=== PATIENT | male | born 1970 | race Two or more races ===

== ENCOUNTER 2024-07-12 07:40 | Day surgery (SDC) | payer MEDICAID ==
[2024-07-10 10:57] LABS: Urine Bacteria None Seen /hpf (None Seen)
[2024-07-10 11:11] LABS: Basophils # (auto) 0 10 ^3/uL (0-0.2); Basophils % (auto) 0.3 % (0.0-2.0); Eosinophils # (auto) 0.2 10 ^3/uL (0-0.8); Eosinophils % (auto) 4.1 % (0.0-7.0); Hematocrit 43.5 % (41.0-53.0); Hemoglobin 15.4 g/dL (13.5-17.5); Lymphocytes # (auto) 1.4 10 ^3/uL (0.4-5.4); Lymphocytes % (auto) 25.8 % (10.0-50.0); Mean Corpuscular Hemoglobin 32.1 pg (28.0-32.0); Mean Corpuscular Hgb Conc. 35.3 g/dL (32.0-36.0); Monocytes # (auto) 0.8 10 ^3/uL (0-1.3); Monocytes % (auto) 14.5 % (0.0-12.0); Neutrophils # (auto) 2.9 10 ^3/uL (1.6-8.6); Neutrophils % (auto) 55.3 % (37.0-80.0); Nucleated Red Blood Cells % 0.3 %; Platelet Count (auto) 204 10^3/uL (140-450); Red Blood Cells 4.78 10^6/uL (4.5-5.90); Red Cell Distribution Width 12.8 % (11.8-14.3); White Blood Cell 5.3 10^3/uL (4.4-10.8)
[2024-07-10 11:20] LABS: INR 1.05 (0.9-1.15); Partial Thromboplastin Time 27.3 SEC (24.5-34.5); Prothrombin Time 11.1 sec (9.3-11.8)
[2024-07-10 11:23] LABS: Urine Blood Negative /uL (Negative); Urine Clarity Clear (Clear); Urine Color Yellow (Yellow); Urine Protein, UAD Negative (Negative); Urine Specific Gravity 1.018 (1.001-1.035); Urine Urobilinogen 3 mg/dL (Negative); Urine WBC <1 /hpf (0 - 3); Urine pH 6.5 (5.0-9.0)
[2024-07-10 11:47] LABS: Alanine Aminotransferase 35 U/L (7-40); Albumin 4.2 g/dL (3.2-4.8); Alkaline Phosphatase 75 U/L (46-116); Anion Gap 6 (5-15); Aspartate Aminotransferase 26 U/L (13-40); BUN/Creatinine Ratio 16.9 (10.0-20.0); Bilirubin, Total 0.7 mg/dL (0.2-1.0); Blood Urea Nitrogen 12 mg/dL (9-23); Calcium 9.6 mg/dL (8.7-10.4); Carbon Dioxide 27 mmol/L (20-31); Chloride 107 mmol/L (98-107); Glucose 92 mg/dL (74-106); Sodium 140 mmol/L (136-145); Total Protein 7.1 g/dL (5.7-8.2)
[~2024-07-12] VITALS: Ht 175.3 cm; Wt 104.3 kg
[~2024-07-12 07:40] MED LIST: BUPR-413 PO; BUSP15TA60 PO; CARV25TA55 PO; GABA-339 PO; HYDR-4798 PO; LISI40TA16 PO; SPIR25TA8 PO; TERA1CAP52 PO; TRAZ-181 PO
[2024-07-12] MEDS ORDERED: KETAMINE 50mg/ML 1ml syringe IV ONE (07:41)
[2024-07-12] MEDS ORDERED: PHENYLEPHRINE HCL 10 MG/ML VL IV ONE (07:41)
[2024-07-12] MEDS ORDERED: GABAPENTIN 400 MG CAP ONE (09:24)
[2024-07-12] MEDS ORDERED: ACETAMINOPHEN IV 100 ML IV ONE (09:24)
[2024-07-12] MEDS ORDERED: CELECOXIB 100 MG CAP ONE (09:24)
[2024-07-12] MEDS ORDERED: KETOROLAC TROMETH 30 MG/ML 1ML VIAL ONE (09:30)
[2024-07-12] MEDS ORDERED: CELECOXIB 100 MG CAP PO ONE (09:30)
[2024-07-12] MEDS ORDERED: LIDOCAINE 2% (LOCAL ANESTH.) PF 5ml SDV ONE (09:30)
[2024-07-12] MEDS ORDERED: DexAMETHasone SOD PHOS 10MG/1ML VIAL INJ ONE (09:30)
[2024-07-12] MEDS ORDERED: ACETAMINOPHEN IV 1000 MG/100ML (10MG/ML) IV ONE (09:30)
[2024-07-12] MEDS ORDERED: ONDANSETRON HCL 4 MG/2 ML VIAL ONE (09:30)
[2024-07-12] MEDS ORDERED: GABAPENTIN 400 MG CAP PO ONE (09:30)
[2024-07-12] MEDS ORDERED: LIDOCAINE HCL 2% TOP JELLY 5ML TOP ONE (09:30)
[2024-07-12] MEDS ORDERED: PROPOFOL 10 MG/ML 20 ML IV ONE (09:31)
[2024-07-12] MEDS ORDERED: GLYCOPYRROLATE 0.2 MG/ML 1ML VIAL ONE (09:31)
[2024-07-12] MEDS ORDERED: ceFAZolin 2 GM/D5W100ml 100 ML IV ONE (09:32)
[2024-07-12] MEDS: BUPIVACAINE 0.5% P/F INJ 10 ML VIAL ONE (09:50)
[2024-07-12] MEDS ORDERED: ePHEDrine SULFATE 50 MG/ML AMP ONE (09:56)
[2024-07-12 10:29] VITALS: PULSE 95; RESP 17; O2SAT 96
[2024-07-12 10:30] VITALS: TEMP 97.4
--- NOTE | 2024-07-12 10:30 | DVHOP2 ---
Operative Report - 2 Report Details Date: 07/12/24 Preop Diagnosis: 1. Right foot neuroma 2. Right foot hallux arthritis 3. Right foot pain Postop Diagnosis: Right foot neuroma Right foot hallux arthritis Surgeon: Daniel Napoles MD Anesthesiologist: See anesthesia Anesthesia: General Consent: The patient was informed of the risks and benefits of the procedure. These include but are not limited to complications of anesthesia, postoperative infection, incomplete relief of symptoms, recurrence of symptoms, damage to blood vessels, nerves and tendons, deep venous thrombosis, pulmonary embolism and possible need for repeat surgery in the future. Complications: None Estimated Blood Loss: Minimal Fluids: See anesthesia Findings: Consistent with diagnosis Indications for Surgery: Worsening right foot pain Name of Procedure Performed 1. Right foot neuroma excision 2. Right foot nerve decompression 3. Right foot hallux cheilectomy Procedure Details Procedure Details: PRE-PROCEDURE INFORMATION: In the pre-op holding area, the extremity to be ope rated on was clearly marked and the patient verified correct laterality of the marking. The patient was transferred to the OR table and placed in a supine position. A timeout was performed in which identification of the correct patient, procedure, location, and materials was done. The right foot and leg were prepped and draped in normal sterile fashion. The foot and leg were exsanguinated and the thigh tourniquet was inflated to 250 mmHg. DESCRIPTION OF PROCEDURE: Attention was directed to the right foot where linear incision was made at the dorsal 1st interspace. Care was taken throughout the dissection to avoid damage to the neurovascular and tendinous structures. Hemostasis was achieved via electrocautery. The incision was deepened through blunt dissection to the level of the deep transverse intermetatarsal ligament. Once the ligament was visualized it was transected using dissecting scissors, effectively decompressing the underlying plantar nerve. This allowed visualization of the plantar nerve, which revealed that there was a neuroma of the plantar nerve with hourglass and severe fibrosis of the perineum noted. The nerve was dissected proximally and was transected. The neuroma was removed and sent to pathology. Attention was directed to the right 1st metatarsophalangeal joint where a stab incision was made at the head of the 1st metatarsal. Care was taken throughout dissection to avoid damage to neurovascular tendinous structures. The incision was deepened to the level of the capsule. Using an MIS bur, the bur was then inserted, and the dorsal spurring of the 1st metatarsal was removed. It was no alycia after performing the MIS cheilectomy that there significant increased range of motion of the hallux. All surgical wounds were irrigated copiously with saline and closed in layers with the aforementioned suture material. A dry sterile dressing was placed on the surgical extremity. The patient was placed in a postop shoe. POSTOPERATIVE INFORMATION: The patient tolerated the above noted procedure and anesthesia well and was transferred to the PACU with vital signs stable, and vascular status intact with capillary refill intact to all digits. Postoperative instructions reviewed in detail with the patient with written instructions provided. Patient will return to clinic in approximately 10-14 days for first postoperative visit. Patient has the number of the clinic and was instructed to call prior to that time should any problems, questions, or concerns arise. Specimen: Right foot neuroma Condition Good Disposition Home DANIEL NAPOLES DPM Jul 12, 2024 10:30
[2024-07-12] MEDS ORDERED: fentaNYL CITRATE 100 MCG/2 ML VL IV PRN (10:45)
[2024-07-12] MEDS ORDERED: ePHEDrine SULFATE 50 MG/ML AMP IV PRN (10:45)
[2024-07-12] MEDS ORDERED: NALOXONE HCL 0.4 MG/ML VIAL IV PRN (10:45)
[2024-07-12] MEDS ORDERED: oxyCODONE HCL 5MG TAB PO PRN (10:45)
[2024-07-12] MEDS ORDERED: ONDANSETRON HCL 4 MG/2 ML VIAL IV PRN (10:45)
[2024-07-12] MEDS ORDERED: HYDROmorphone HCL 2 MG/ML VL/or syr IV PRN (10:45)
[2024-07-12] MEDS ORDERED: hydrALAZINE HCL 20 MG/ML VL IV PRN (10:45)
[2024-07-12] MEDS ORDERED: FLUMAZENIL 0.1 MG/ML INJ 10ML MDV IV PRN (10:45)
[2024-07-12 11:05] VITALS: BP 123/91; PULSE 85; RESP 12; O2SAT 93
== END 2024-07-12 11:15 | disposition home or self-care (01) ==
LOC: SUR 07:40
PROVIDERS: ATTEND Podiatrist
DX: M19.071 Primary osteoarthritis, right ankle and foot (principal); M20.5X1 Other deformities of toe(s) (acquired), right foot; D36.13 Benign neoplasm of peripheral nerves and autonomic nervous system of lower limb, including hip; I10 Essential (primary) hypertension; G89.29 Other chronic pain; G47.33 Obstructive sleep apnea (adult) (pediatric); E66.01 Morbid (severe) obesity due to excess calories; Z68.39 Body mass index [BMI] 39.0-39.9, adult; Z88.8 Allergy status to other drugs, medicaments and biological substances; Z91.048 Other nonmedicinal substance allergy status; Z98.890 Other specified postprocedural states; Z79.899 Other long term (current) drug therapy; Z91.09 Other allergy status, other than to drugs and biological substances; Z68.34 Body mass index [BMI] 34.0-34.9, adult; M79.671 Pain in right foot
CPT/HCPCS: 28080; 28289; 36415; 80053; 81001; 85025; 85610; 85730; 88305; J1100; J1885; J2003; J2371; J2405; J2704; J3490; J0131

== ENCOUNTER → 2025-03-22 | Day surgery (SDC) | payer MEDICAID ==
[2025-03-19 11:50] LABS: Hematocrit 45.6 % (41.0-53.0); Hemoglobin 15.9 g/dL (13.5-17.5); Mean Corpuscular Hemoglobin 32.0 pg (28.0-32.0); Mean Corpuscular Volume 91.6 fL (80.0-100.0); Nucleated Red Blood Cells % 0.1 %
[2025-03-19 11:51] LABS: Urine Protein, UAD Negative (Negative)
[2025-03-19 12:00] LABS: INR 1.02 (0.9-1.15); Partial Thromboplastin Time 26.5 SEC (24.5-34.5); Prothrombin Time 10.8 sec (9.3-11.8)
[2025-03-19 12:37] LABS: Alanine Aminotransferase 31 U/L (7-40); Alkaline Phosphatase 66 U/L (46-116); Anion Gap 8 (5-15); BUN/Creatinine Ratio 20.3 (10.0-20.0); Blood Urea Nitrogen 16 mg/dL (9-23); Calcium 9.8 mg/dL (8.7-10.4); Carbon Dioxide 27 mmol/L (20-31); Chloride 104 mmol/L (98-107); Glucose 98 mg/dL (74-106); Potassium 3.9 mmol/L (3.5-5.1); Sodium 139 mmol/L (136-145); Total Protein 7.6 g/dL (5.7-8.2)
[2025-03-19 12:38] LABS: Albumin 4.9 g/dL (3.2-4.8); Bilirubin, Total 0.8 mg/dL (0.2-1.0)
[~2025-03-22] VITALS: Ht 175.3 cm; Wt 104.3 kg
[~2025-03-22] MED LIST changes: +ATOR-507 PO; +GLYCOPYRROLATE 0.2 MG/ML 1ML VIAL ONE; +LIDO5DIS21 TOP; +LIDOCAINE 2% (LOCAL ANESTH.) PF 5ml SDV ONE; +MIDAZOLAM HCL 2MG/2ML 2ml VIAL (1mg/ml) ONE; +ONDANSETRON HCL 4 MG/2 ML VIAL ONE; +PROPOFOL 10 MG/ML 20 ML IV ONE; +fentaNYL CITRATE 100 MCG/2 ML VL ONE
[2025-03-22 07:49] VITALS: TEMP 97.6
--- NOTE | 2025-03-22 08:42 | DVHHP2 ---
GI H&P Pre-Op Assessment Date: 03/22/25 Chief complaint: colon cancer screening, abdominal distension HPI: per clinic note Past medical history: per clinic note Past surgical history: per clinic note Family history: per clinic note Physical exam: General: NAD, AAOX3 HEENT: PERRL, no scleral icterus, normal hearing, gums without lesions or bleeding, oropharynx clear without erythema or exudate. Neck: Supple without enlargement of the thyroid, or lymphadenopathy. Chest: Normal size and shape, no tenderness, lung han clear to auscultation and percussion, nonlabored breathing. Heart: RRR, no murmur Abdomen: non-distended, no tenderness to palpation, +BS, no hepatosplenomegaly Extremities: no edema Neurological: CN II-XII intact, sensation intact in all extremities, 5+ strength in all extremities Skin: No rashes, No jaundice Assessment: - colon cancer screening - abdominal distension Plan: - EGD - Colonoscopy - Risks (bleeding, infection, perforation, reaction to sedation medications and cardiopulmonary arrest) and benefit of the procedure were explained to patient. Patient agrees to undergo the procedure. QUAN NICHOLE MD Mar 22, 2025 08:42
[2025-03-22 09:16] VITALS: PULSE 91; RESP 13; O2SAT 94
--- NOTE | 2025-03-22 09:21 | DVHOP2 ---
Operative Report DATE OF OPERATION: 03/22/25 PROCEDURE: Upper Endoscopy. PREOPERATIVE INDICATION: The patient is a 55 -year-old male undergoing endoscopy for upper abdominal distension. POSTOPERATIVE DIAGNOSES: 1. Duodenitis in the bulb. 2. Mild gastritis PROCEDURE PERFORMED BY: Elian Anderson SCOPE: Olympus videoendoscope. ASA CLASS: 3 PREOPERATIVE MEDICATIONS: MAC with Dr Hays PROCEDURE IN DETAIL: After obtaining an informed consent, the patient was place d on left lateral decubitus position. The patient was then sedated with the above medications. A bite block was placed between his teeth. The endoscope was then passed through the oropharynx, into the esophagus, and through the stomach and pylorus up to the second and third part of the duodenum. There was mild duodenitis in the bulb. Duodenal biopsies were obtained. There was mild gastritis. Gastric biopsies were obtained. The GEJ was normal in appearance at 39 cm. The esophagus was normal in appearance. The endoscope was then withdrawn. The patient tolerated the procedure well without difficulty. COMPLICATIONS : None SPECIMENS: Duodenal biopsies, Gastric biopsies DISPOSITION: D/C to home PLAN: 1. Await for biopsy result ELIAN ANDERSON MD Mar 22, 2025 09:21
--- NOTE | 2025-03-22 09:24 | DVHOP2 ---
Operative Report DATE OF OPERATION: 03/22/25 PROCEDURE: Colonoscopy. PREOPERATIVE INDICATION: The patient is a 55 -year-old male undergoing colonoscopy for blood in the stool. POSTOPERATIVE DIAGNOSES: 1. 3 mm descending colon polyp was removed with cold biopsy forceps. 2. 2 mm sigmoid colon polyp was removed with cold biopsy forceps. 3. Mild diffuse diverticulosis PROCEDURE PERFORMED BY: Elian Anderson M.D. SCOPE: Olympus videocolonoscope. ASA CLASS: 3 PREOPERATIVE MEDICATIONS: MAC with Dr Hays PROCEDURE IN DETAIL: After obtaining an informed consent, the patient was placed on left lateral decubitus position. He was then sedated with the above medications. A rectal examination was performed that was normal. The colonoscope was then passed through the anus into the rectosigmoid and through the descending, transverse, and ascending colon up to the cecum with visualization of the appendiceal orifice, base of the cecum and the ileocecal valve. A 3 mm descending colon polyp was removed with cold biopsy forceps. A 2 mm sigmoid colon polyp was removed with cold biopsy forceps. There was mild diffuse diverticulosis. The colonoscope was then withdrawn. The patient tolerated the procedure well without difficulty. WITHDRAWAL TIME: 6 minutes QUALITY OF THE PREP: Haskins Bowel Prep score: 6 COMPLICATIONS : None SPECIMENS: Colon polyps DISPOSITION: D/C to home PLAN: 1. Repeat colonoscopy base on biopsy result ELIAN ANDERSON MD Mar 22, 2025 09:24
--- NOTE | 2025-03-22 09:24 | DVHDS2 ---
Physician Discharge Progress N Final Diagnosis: Duodenitis, gastritis Colon polyps, diverticulosis Operations or Procedures: Operations or Procedures EGD with cold biopsy Colonoscopy with cold biopsy polypectomy Condition on Discharge: Good Disposition: Home Discharge Instructions: Diet: Regular Activity: No Restrictions, As Tolerated Medications: Resume with previous home medications Follow Up Care: Discharge Statement: "Patient was advised to return to the ER or call 911 if any headaches, dizziness, shortness of breath, chest pain, abdominal pain, bleeding, fevers, or worsening of medical condition. Patient was counseled about treatment plan, medications, possible side effects, patientverbalized understanding. All questions were answered to the best of my ability. This discharge took greater then 30 minutes in planning, reviewing documentation, counseling the patient, and discussing with other team members." QUAN NICHOLE MD Mar 22, 2025 09:24
[2025-03-22 09:45] VITALS: BP 110/76; PULSE 95; RESP 16; O2SAT 95
== END | disposition home or self-care (01) ==
LOC: GI 07:33
PROVIDERS: ATTEND Internal Medicine Gastroenterology
DX: K92.1 Melena (principal); K63.5 Polyp of colon; K57.30 Diverticulosis of large intestine without perforation or abscess without bleeding; K29.50 Unspecified chronic gastritis without bleeding; R14.0 Abdominal distension (gaseous); K29.80 Duodenitis without bleeding; I10 Essential (primary) hypertension; I25.10 Atherosclerotic heart disease of native coronary artery without angina pectoris; G89.29 Other chronic pain; F41.8 Other specified anxiety disorders; E66.9 Obesity, unspecified; Z68.34 Body mass index [BMI] 34.0-34.9, adult; Z86.73 Personal history of transient ischemic attack (TIA), and cerebral infarction without residual deficits; Z96.82 Presence of neurostimulator; Z88.8 Allergy status to other drugs, medicaments and biological substances
CPT/HCPCS: 36415; 43239; 45380; 80053; 81001; 85025; 85610; 85730; 88305; 88342; J2003; J2250; J2405; J2704; J3010